=== PATIENT | female | born 1950 | race Caucasian/White ===

== ENCOUNTER → 2016-12-06 | Outpatient (CLI) | payer MEDICARE, BC ==
[~2016-12-06] MED LIST: ZITHROMAX 250M250 MG PO
== END ==
LOC: MC.RAD 08:40
DX: Z12.31 Encounter for screening mammogram for malignant neoplasm of breast (principal)

== ENCOUNTER → 2018-01-08 | Outpatient (CLI) | payer MEDICARE, BC | LOC: MC.RAD 09:00 | DX: Z12.31 Encounter for screening mammogram for malignant neoplasm of breast (principal) ==

== ENCOUNTER 2018-07-03 15:30 | Outpatient (RCR) | payer MEDICARE, BC | END 2018-07-08 14:55 | disposition home or self-care (01) | LOC: WSC 15:30 | DX: M41.9 Scoliosis, unspecified (principal); M79.18 Myalgia, other site ==

== ENCOUNTER → 2018-09-23 | Outpatient (CLI) | payer MEDICARE, BC | LOC: COL.LAB 14:15 | DX: J30.1 Allergic rhinitis due to pollen (principal) ==

== ENCOUNTER → 2020-05-05 | Outpatient (CLI) | payer MEDICARE | LOC: MC.RAD 04-20 10:15 | DX: Z12.31 Encounter for screening mammogram for malignant neoplasm of breast (principal) ==

== ENCOUNTER → 2021-06-07 | Outpatient (CLI) | payer MEDICARE | LOC: MC.RAD 10:42 | DX: Z12.31 Encounter for screening mammogram for malignant neoplasm of breast (principal) ==

== ENCOUNTER → 2022-06-09 | Outpatient (CLI) | payer MEDICARE ==
[~2022-06-09] MED LIST changes: +KLOR-CON20 MEQ PO; +ZOFRAN ODT4 MG PO
== END ==
LOC: MC.RAD 09:53
DX: Z12.31 Encounter for screening mammogram for malignant neoplasm of breast (principal)

== ENCOUNTER 2022-07-04 06:21 | Day surgery (SDC) | payer MEDICARE ==
[~2022-07-04] VITALS: Ht 165.1 cm; Wt 47.0 kg
[2022-07-04 08:25] VITALS: BP 101/60; PULSE 74; TEMP 98.1
[2022-07-04 08:40] VITALS: BP 109/64; PULSE 64
[2022-07-04 08:55] VITALS: BP 107/66; PULSE 64
--- NOTE | 2022-07-04 09:00 | NUR ---
0825 RETURNS TO ROOM 7 PER CART. DROWSY, AROUSES SPONTANEOUSLY. HOB ELEVATED 40 DEGREES. RESP UNLABORED. DENIES PAOIN OR DYSPNEA. VITAL SIGNS OBTAINED. CALL LIGHT AT SIDE. IN ROOM 0840 TOLERATES PO WATER WITHOUT NAUSEA. DISCHARGE INSTRUCTIONS VERBALLY REVIEWED WITH PATIENT AND VERBALIZING UNDERSTANDING. COMPUTERS/[place] DOWN SO UNABLE TO PROVIDE PATIENT WITH COPY OF INSTRUCTIONS OR PROCEDURE SPECIFIC INFORMATION. 0855 SITS ON EDGE OF CART. DRESSES SELF
[2022-07-04 11:36] VITALS: BP 133/63; PULSE 68; TEMP 97.3
[2022-07-04] MEDS ORDERED: AMITRIPTYLINE H25 M1 PO (11:42)
[2022-07-04] MEDS ORDERED: INDERAL40 MG PO (11:42)
[2022-07-04] MEDS ORDERED: PHENERGAN 25 TA25 MG PO (11:43)
[2022-07-04] MEDS ORDERED: IMITREX50 MG PO (11:44)
[2022-07-04 14:18] VITALS: BP 112/65; PULSE 78
== END 2022-07-04 09:00 | disposition home or self-care (01) ==
LOC: SDCO 06:21
DX: R91.8 Other nonspecific abnormal finding of lung field (principal); M41.25 Other idiopathic scoliosis, thoracolumbar region; Z28.310 Unvaccinated for COVID-19
CPT/HCPCS: J2704

== ENCOUNTER → 2023-04-27 | Outpatient (CLI) | payer MEDICARE ==
[~2023-04-27] MED LIST changes: +AMITRIPTYLINE H25 M1 PO; +IMITREX50 MG PO; +INDERAL40 MG PO; +PHENERGAN 25 TA25 MG PO
== END ==
LOC: COL.RAD 10:14
DX: K58.0 Irritable bowel syndrome with diarrhea (principal); E04.9 Nontoxic goiter, unspecified